=== PATIENT | female | born 1990 | race Hispanic/Latino ===

== ENCOUNTER 2018-09-23 20:50 | Emergency (ER) | payer OTHER ==
[2018-09-23 21:29] VITALS: TEMP 97.8
[2018-09-23 22:02] LABS: BASO # 0.01 K/mm3 (0.0-2.0); BASO % 0.1 % (0.0-3.0); EOS # 0.2 (0.0-0.7); EOS % 1.9 % (1.5-5.0); HEMOGLOBIN 14.2 g/dL (12.0-16.0); LYMPH # 3.5 (1.2-3.4); LYMPH % 28.7 % (22.0-35.0); MEAN CELL VOLUME 90.4 fl (80.0-105.0); MEAN CORPUSCULAR HEMOGLOBIN 31.1 pg (25.0-35.0); MEAN CORPUSCULAR HGB CONC 34.4 g/dl (31.0-37.0); MEAN PLATELET VOLUME 9.6 fl (7.0-11.0); MONO # 0.6 (0.1-0.6); MONO % 4.8 % (1.0-6.0); RBC 4.57 10^6/uL (3.5-6.1); RED CELL DISTRIBUTION WIDTH 12.6 % (11.5-14.5)
[2018-09-23 22:09] LABS: ALB/GLOB RATIO 1.2 (1.1-1.8); ALBUMIN 3.9 g/dL (3.0-4.8); ALT/SGPT 32 U/L (7-56); AST/SGOT 23 U/L (14-36); BLOOD UREA NITROGEN 10 mg/dL (7-21); CALCIUM 9.5 mg/dL (8.4-10.5); GFR NON-AFRICAN AMERICAN > 60
--- NOTE | 2018-09-23 22:12 | ED PDOC ---
Arrival/HPI - General Chief Complaint: Chest Pain Historian: Patient - History of Present Illness Narrative History of Present Illness (Text): 09/23/18 21:55 27 year old female, with no significant past medical history, presents to the emergency department for chest pain and shortness of breath, for 1 week. Patient informs she recently had a 13 hour flight, and began feeling tired with some chest pressure when she got home. Patient informs she slept a lot and rested for 2 days. Patient informs upon returning to work, chest pressure and shortness of breath worsened. Patient states she went to an Urgent care where a chest x-ray, EKG, and blood work was done, with normal results. Patient states she still wasn't feeling herself. Patient informs she has a history of smoking. Patient denies any fevers, chills, headache, dizziness, abdominal pain, nausea, vomiting, diarrhea, back pain, neck pain, or any other complaint. Time/Duration: Prior to Arrival, 1 week Symptom Onset: Gradual Symptom Course: Unchanged Quality: Pressure Activities at Onset: Light Context: Home Past Medical History - Provider Review Nursing Documentation Reviewed: Yes - Infectious Disease Hx of Infectious Diseases: None - Psychiatric Hx Anxiety: Yes Hx Substance Use: No - Anesthesia Hx Anesthesia: No Family/Social History - Physician Review Nursing Documentation Reviewed: Yes Family/Social History: No Known Family HX Smoking Status: Never Smoked Hx Alcohol Use: No Hx Substance Use: No Allergies/Home Meds Allergies/Adverse Reactions: Allergies No Known Allergies Allergy (Verified 09/23/18 21:23) Home Medications: Home Meds Medication Instructions Recorded Confirmed No Known Home Med 09/18/18 09/23/18 Review of Systems - Physician Review All systems were reviewed & negative as marked: Yes - Review of Systems Constitutional: absent: Fevers, Night Sweats Respiratory: SOB Cardiovascular: Chest Pain Gastrointestinal: absent: Abdominal Pain, Diarrhea, Nausea, Vomiting Musculoskeletal: absent: Back Pain, Neck Pain Neurological: absent: Headache, Dizziness Endocrine: absent: Diaphoresis Physical Exam Vital Signs Reviewed: Yes Vital Signs Temp Pulse Pulse Resp BP BP Pulse Ox 09/23/18 21:20 98 H 140/82 09/23/18 21:10 97.8 F 100 H 18 137/86 98 Temperature: Afebrile Blood Pressure: Normal Pulse: Tachycardic Respiratory Rate: Normal Appearance: Positive for: Well-Appearing, Non-Toxic, Comfortable Pain Distress: None Mental Status: Positive for: Alert and Oriented X 3 - Systems Exam Head: Present: Atraumatic, Normocephalic Pupils: Present: PERRL Extroacular Muscles: Present: EOMI Conjunctiva: Present: Normal Mouth: Present: Moist Mucous Membranes Neck: Present: Normal Range of Motion Respiratory/Chest: Present: Clear to Auscultation, Good Air Exchange. No: Respiratory Distress, Accessory Muscle Use Cardiovascular: Present: Regular Rate and Rhythm, Normal S1, S2. No: Murmurs Abdomen: No: Tenderness, Distention, Peritoneal Signs Back: Present: Normal Inspection Upper Extremity: Present: Normal Inspection. No: Cyanosis, Edema Lower Extremity: Present: Normal Inspection. No: Edema Neurological: Present: GCS=15, CN II-XII Intact, Speech Normal Skin: Present: Warm, Dry, Normal Color. No: Rashes Psychiatric: Present: Alert, Oriented x 3, Normal Insight, Normal Concentration Medical Decision Making ED Course and Treatment: 09/23/18 22:14 Impression: 27 year old female presents with chest pressure and shortness of breath. Differential Diagnosis included but are not limited to: Rule out PE Plan: -- CTA PE protocol --IV Fluids --Labs -- EKG -- Chest X-ray -- Reassess and disposition Prior Visits: Notes and results from previous visits were reviewed. Progress Notes: 09/23/18 23:01 Labs reviewed and unremarkable. Patient noted to have urticarial lesions tracking up her left arm worrisome for an allergic reaction. Benadryl, pepcid and solumedrol ordered. 09/24/18 00:19 Patient noted to respond well to administered medications. CTPE negative for PE. Patient updated on image and lab findings and advised to follow up with a PCP. Opportunity for questions given and answered. VSS. She is stable for discharge. - Lab Interpretations Lab Results: 09/23/18 21:40 09/23/18 21:40 Lab Results 09/23/18 21:40: Sodium 139, Potassium 3.9, Chloride 105, Carbon Dioxide 24, Anion Gap 14, BUN 10, Creatinine 0.8, Est GFR ( Amer) > 60, Est GFR (Non- Af Amer) > 60, Random Glucose 127 H, Calcium 9.5, Total Bilirubin 0.7, AST 23, ALT 32, Alkaline Phosphatase 50, Total Creatine Kinase 39, Troponin I < 0.01, Total Protein 7.1, Albumin 3.9, Globulin 3.2, Albumin/Globulin Ratio 1.2 09/23/18 21:40: WBC 12.0 H, RBC 4.57, Hgb 14.2, Hct 41.3, MCV 90.4, MCH 31.1, MCHC 34.4, RDW 12.6, Plt Count 340, MPV 9.6, Neut % (Auto) 64.5, Lymph % (Auto) 28.7, Arroyo % (Auto) 4.8, Eos % (Auto) 1.9, Baso % (Auto) 0.1, Lymph # (Auto) 3.5 H, Arroyo # (Auto) 0.6, Eos # (Auto) 0.2, Baso # (Auto) 0.01, Absolute Neuts (auto) 7.74 H 09/23/18 21:40: D-Dimer, Quantitative 213 I have reviewed the lab results: Yes - RAD Interpretation Narrative RAD Interpretations (Text): 09/23/18 23:36 CTA Chest with Intravenous Contrast for Pulmonary Embolism CLINICAL HISTORY: SOB TECHNIQUE: Axial CTA images of the chest with intravenous contrast using a pulmonary embolism protocol. Reconstructed images were created and reviewed. 441.49 mGy-cm CONTRAST: With; OMNI 350 100 ML was administered without incident. COMPARISON: None provided. FINDINGS: PULMONARY ARTERIES No evidence of central or segmental pulmonary embolism is seen. AORTA There is no evidence for aneurysm or dissection of the thoracic aorta. LUNGS The lungs appear clear. PLEURAL SPACES No pleural effusion seen. No pneumothorax evident. HEART Heart size is within normal limits. No significant pericardial effusion. LYMPH NODES No lymphadenopathy is evident. BONES No focal osseous abnormality or acute fracture. UPPER ABDOMEN Images of the upper abdomen are unremarkable. IMPRESSION: Unremarkable pulmonary embolism protocol CTA of the chest. Radiology Orders: 09/23/18 21:33 CHEST PORTABLE [RAD] Stat 09/23/18 21:47 ANGIO CHEST PE PROTOCOL [CT] Stat Bronc Buster: Radiologist - EKG Interpretation EKG Interpretation (Text): 09/24/18 01:59 Normal sinus rhythm @ 102bpm No ST elevations, No T wave inversions. Interpreted by ED Physician: Yes Type: 12 lead EKG - Medication Orders Current Medication Orders: 09/23/18 23:07 Discontinued Medications Diphenhydramine HCl (Benadryl) 50 mg IVP STAT STA Stop: 09/23/18 22:54 Last Admin: 09/23/18 23:04 Dose: 50 mg IVP Administration Document 09/23/18 23:04 KV (Rec: 09/23/18 23:04 KV [id number]) Charges for Administration # of IVP Administrations 1 Famotidine (Pepcid) 20 mg IVP STAT STA Stop: 09/23/18 22:54 Methylprednisolone (Solu-Medrol) 125 mg IVP STAT STA Stop: 09/23/18 22:54 Last Admin: 09/23/18 23:04 Dose: Not Given Non-Admin Reason: Patient Refused - Scribe Statement The provider has reviewed the documentation as recorded by the Scribe Faheem Almazan Provider Scribe Attestation: All medical record entries made by the Scribe were at my direction and personally dictated by me. I have reviewed the chart and agree that the record accurately reflects my personal performance of the history, physical exam, medical decision making, and the department course for this patient. I have also personally directed, reviewed, and agree with the discharge instructions and disposition. Disposition/Present on Arrival - Present on Arrival Any Indicators Present on Arrival: No History of DVT/PE: No History of Uncontrolled Diabetes: No Urinary Catheter: No History of Decub. Ulcer: No History Surgical Site Infection Following: None - Disposition Have Diagnosis and Disposition been Completed?: Yes Diagnosis: Dyspnea, Anxiety Disposition: HOME/ ROUTINE Disposition Time: 00:22 Patient Plan: Discharge Discharge Instructions (ExitCare): Anxiety, Adult (DC) Print Language: LIBERIAN Additional Instructions: All medical record entries made by the Scribe were at my direction and perso simona dictated by me. I have reviewed the chart and agree that the record accurately reflects my personal performance of the history, physical exam, medical decision making, and the department course for this patient. I have also personally directed, reviewed, and agree with the discharge instructions and disposition. Please follow up in clinic or with your PCP in 1 week Referrals: Alina Archer MD [Medical Doctor] - Follow up with primary [facility] [place] [Outside] - Follow up with primary Forms: [employer] ([place]), WORK NOTE
[2018-09-23 22:20] LABS: TROPONIN I < 0.01 ng/mL
[2018-09-23] MEDS: Sodium Chloride 0.9% 1,000 ML IV STA (22:50)
[2018-09-23] MEDS: DiphenhydrAMINE 50 mg/ml Inj IVP STA (23:04)
[2018-09-23 23:13] VITALS: BP 126/62; PULSE 88; RESP 19; O2SAT 100
[2018-09-24] MEDS ORDERED: Iohexol 350 MG/100 ML VIAL ONE (00:11)
--- NOTE | 2018-09-24 08:22 | CT ---
Date of service: 09/23/2018 PROCEDURE: CT Chest with contrast (Pulmonary Angiogram) HISTORY: SOB w/ reproducible chest pain, elevated D-dimer COMPARISON: None available. TECHNIQUE: Axial computed tomography images were obtained of the chest in the pulmonary arterial phase of enhancement. Coronal and sagittal reformatted images were created and reviewed. Intravenous contrast dose: 100 cc of Omni 350 Radiation dose: Total exam DLP = 477.16 mGy-cm. This CT exam was performed using one or more of the following dose reduction techniques: Automated exposure control, adjustment of the mA and/or kV according to patient size, and/or use of iterative reconstruction technique. FINDINGS: PULMONARY ARTERIES: Unremarkable. No pulmonary embolism. AORTA: No acute findings. No thoracic aortic aneurysm. No aortic atherosclerotic calcification or mural plaque present. LUNGS: Unremarkable. No nodule, mass or pulmonary consolidation. PLEURAL SPACES: Unremarkable. No effusion or pneumothorax. HEART: Unremarkable. No cardiomegaly. No significant pericardial effusion. LYMPH NODES: No lymphadenopathy. BONES, CHEST WALL: Unremarkable. No fracture or destructive lesion OTHER FINDINGS: The report concurs with the preliminary [facility] report IMPRESSION: Unremarkable CT pulmonary angiogram. No pulmonary embolus.
--- NOTE | 2018-09-24 08:39 | RAD ---
Date of service: 09/23/2018 HISTORY: sob COMPARISON: CT angio chest 09/23/2018, 8:32 p.m.. TECHNIQUE: 1 view obtained. FINDINGS: LUNGS: No active pulmonary disease. PLEURA: No significant pleural effusion identified, no pneumothorax apparent. CARDIOVASCULAR: No aortic atherosclerotic calcification present. Normal cardiac size. No pulmonary vascular congestion. OSSEOUS STRUCTURES: No significant abnormalities. VISUALIZED UPPER ABDOMEN: Normal. OTHER FINDINGS: None. IMPRESSION: No interval acute cardiopulmonary disease appreciated.
--- NOTE | 2018-09-24 09:43 | CARD ---
APPROVED REPORT Date of service: 09/23/2018 EKG Measurement Heart [id number] <Conclusion> Sinus tachycardia Otherwise normal ECG
== END 2018-09-24 00:27 | disposition home or self-care (01) ==
LOC: ED 20:50
DX: F41.9 Anxiety disorder, unspecified (principal); R06.00 Dyspnea, unspecified; Z87.891 Personal history of nicotine dependence
CPT/HCPCS: 71045; 71275; 80053; 81025; 82550; 84484; 85025; 85378; 93005; 96374; 99284; J1200; J7030; Q9967